=== PATIENT | female | born 1975 | race Caucasian/White ===

== ENCOUNTER 2022-01-10 06:59 | Outpatient (CLI) | payer MEDICARE, OTHER, SELFPAY ==
--- NOTE | 2022-01-10 08:48 | W.ANESCHARGE ---
Anesthesia Charges Start Date/Time Anesthesia Start Date: 01/10/22 Anesthesia Start Time: 08:05 Stop Date/Time Anesthesia Stop Date: 01/10/22 Anesthesia Stop Time: 08:43 Summary Emergency: No
== END 2022-01-10 07:00 | disposition home or self-care (01) ==
LOC: OP CLINIC 07:02
PROVIDERS: Visit Provider Internal Medicine Gastroenterology
DX: R10.13 Epigastric pain (principal); R19.7 Diarrhea, unspecified; K44.9 Diaphragmatic hernia without obstruction or gangrene; K31.89 Other diseases of stomach and duodenum; R19.8 Other specified symptoms and signs involving the digestive system and abdomen
CPT/HCPCS: 43239; 45380; 813; 88305; J2704

== ENCOUNTER 2022-01-11 09:21 | Emergency (ER) | payer MEDICARE, OTHER, SELFPAY ==
[2022-01-11 09:29] VITALS: BP 155/91; PULSE 68; RESP 18; TEMP 36.2; O2SAT 98; BMI 28.3
[2022-01-11 09:46] LABS: Appearance Urine Clear (Clear); Bilirubin Urine Negative (Negative); Blood Urine Negative (Negative); Color Urine Yellow (Yellow); Glucose Urine Negative (Negative); Ketones Urine Negative (Negative); Leukocyte Esterase Urine Negative (Negative); Nitrite Urine Negative (Negative); Protein Urine Negative (Negative); Urobilinogen Urine 0.2 (0.2-1.0)
--- NOTE | 2022-01-11 09:50 | CRLHL7_ITS ---
For Patients: As a result of the Century Cures Act, medical imaging exams and procedure reports are released immediately into your electronic medical record. You may view this report before your referring provider. If you have questions, please contact your health care provider. Indication : Abdominal pain Technique: Upright and supine views of the abdomen were acquired Comparison: No prior plain films Findings: The osseous structures as visualized appear normal. Bowel gas pattern is unremarkable without plain film evidence of ileus, obstruction or perforation. Pelvic calcifications are likely vascular. Impression: Unremarkable bowel gas pattern without plain film indication of ileus, obstruction or perforation. Dictated by Conner Elizalde MD @ 01/11/2022 10:50:29 AM (Electronically Signed)
[2022-01-11] MEDS: 0.9 % SODIUM CHLORIDE 1000 ml 1,000 ML IV (10:05)
[2022-01-11] MEDS: LORazepam 2 MG/ML inj 0.5 MG IVP (10:06)
[2022-01-11] MEDS: MORPHINE 4 MG/ML INJ IVP (10:11)
--- NOTE | 2022-01-11 10:13 | ED_ITS ---
HPI - Abdominal Pain General Time Seen by Provider: 10:13 Date Seen: 01/11/22 Chief Complaint: Abdominal Pain Stated Complaint: Abdominal pain Time Seen by Provider: 01/11/22 09:37 Source: patient Mode of arrival: ambulatory History of Present Illness HPI narrative: 46-year-old female presents here for evaluation of generalized abdominal pain. She described as gas going throughout her abdomen. She thinks it may be her gallbladder is noted to have some gallbladder issues that were recently diagnosed with a HIDA scan. She tells me her HIDA scan results shows me that her gallbladder does not work properly. She underwent endoscopy here both upper and lower yesterday with her GI physician . Upper and lower biopsies were done, but overall she tells me her report from him was that she has some slight inflammation. She reports that she had slight abdominal pain yesterday, but the medications they gave her the endoscopy really mask this. Today she noted when she woke up she had increased abdominal pain. She is not vomiting, she is not nauseous, and she is passing gas. She has not had a bowel movement but this is very normal after colonoscopy. She denies any dysuria frequency of urination. She has had a previous endometrial ablation but feels that she is unlikely to be . Denies any fevers chills or sweats she says the pain goes through to her back. And she notices more other upper quadrants than lower. Denies a cough, chest pain, but does have a history of reflux. She has been to multiple emergency room she tells me in the past for this abdominal pain. She was recently here in October and I actually saw her. I have reviewed that note and also a note I we have got from the [facility]. I also have a note from being seen over in [place] in August this last year. She tells me they usually get a CT scan but that is always been normal. MD elicited complaint: abdominal pain Related Data Home Medications Medication Instructions Recorded Confirmed albuterol sulfate 90 mcg/actuation INHALATION 01/11/22 aerosol inhaler atorvastatin 10 mg tablet mg 01/11/22 bupropion HCl 150 mg tablet,12 hr mg PO 01/11/22 sustained-release levothyroxine 112 mcg tablet mcg 01/11/22 levothyroxine 125 mcg tablet mcg 01/11/22 (Synthroid) meloxicam 15 mg tablet mg 01/11/22 omeprazole 40 mg capsule,delayed mg 01/11/22 release oxcarbazepine 150 mg tablet mg 01/11/22 pantoprazole 40 mg tablet,delayed mg PO 01/11/22 release phentermine 37.5 mg tablet mg 01/11/22 tizanidine 4 mg tablet mg 01/11/22 Allergies Allergy/AdvReac Type Severity Reaction Status Date / Time cephalexin Allergy Verified 01/11/22 09:37 Review of Systems Status of ROS Reports: 10 or more systems reviewed and unremarkable except as noted in History and below [facility] Medical History (Updated 01/11/22 @ 11:08 by Clifford Shabazz MD) GERD (gastroesophageal reflux disease) Hypothyroid Social History Smoking Status: Current every day smoker What tobacco products do you use: cigarettes Do you use any of these nicotine containing products: None Non-prescribed substance use: denies use service: No Exam Narrative: Exam Narrative: Patient is lying in the bed, constantly moving around, appears to be in some discomfort. But then will sit normally for me while I examine her. And she is a bit distractive. Pupils are equal round reactive to light there is no scleral icterus redness noted TMs normal oropharynx is normal. Neck is supple full range of motion. No lymphadenopathy anterior posterior chains or chest is good air entry bilaterally with no wheezing crackles noted heart sounds no clicks murmurs or gallops her abdomen slightly distended. No significant guarding no significant tenderness elicited she has a negative Smith sign, bowel sounds are normal in all quadrants. No peritoneal signs and no organomegaly. Her back reports that shows no evidence of any bruising or ecchymosis as does her abdominal skin. Extremities all move normally with normal power in upper lower extremities there is absence of edema normal pulses. And neurologically she is intact. Const: Vital Signs, click to edit/add: Vital Signs - 24 hr 01/11/22 09:29 01/11/22 11:17 Temperature 97.2 F L Pulse Rate 70 Pulse Rate [Right Pulse Oximeter] 68 Respiratory Rate 18 14 Blood Pressure 138/71 Blood Pressure [Ri ght Upper Arm] 155/91 H Pulse Oximetry 98 Documenting provider has reviewed patient's vital signs: yes Course Course Hospital Course: Patient improved here with the morphine and IV fluids. She did have a little bit of burning in her IV above the level of the insertion. Suspect this is a little bit from the histamine release of the morphine. Reevaluation(s) Reevaluation #1: Pain is basically gone, I reviewed with the patient her laboratory work which showed no evidence of elevated white count hemoglobin, lipase, urinalysis and preg test were all negative. Review of her abdominal x-ray showed some stool in the right side of the colon but there is no evidence of free air or other abnormality. Her ALT was slightly elevated, I am not sure the significance of this but this is nothing to be terribly worried about. I think at this point follow-up would be important. Back with her personal loan specialist, and I spoke in passing with Dr. Gamble the general surgeon who suggested follow-up appointment to discuss the biliary dyskinesia and a possible laparoscopic cholecystectomy. I reviewed with her the worsening signs and symptoms. Time: 11:08 Vital Signs Vital signs: Initial Vital Signs Temperature 97.2 F L 01/11/22 09:29 Temperature Source Temporal Artery Scan 01/11/22 09:29 Pulse Rate 68 01/11/22 09:29 Respiratory Rate 18 01/11/22 09:29 Blood Pressure 155/91 H 01/11/22 09:29 Blood Pressure Mean 112 01/11/22 09:29 Blood Pressure Position Sitting 01/11/22 09:29 Pulse Oximetry 98 01/11/22 09:29 Oxygen Delivery Method 01/11/22 09:29 Vital Signs Temperature 97.2 F L 01/11/22 09:29 Pulse Rate 68 01/11/22 09:29 Respiratory Rate 18 01/11/22 09:29 Blood Pressure 155/91 H 01/11/22 09:29 Pulse Oximetry 98 01/11/22 09:29 Temperature 97.2 F L 01/11/22 09:29 Pulse Rate 70 01/11/22 11:17 Respiratory Rate 14 01/11/22 11:17 Blood Pressure 138/71 01/11/22 11:17 Pulse Oximetry 98 01/11/22 09:29 MDM - Abdominal Pain MDM Narrative Medical decision making narrative: Patient is seen and assessed her vital signs are reviewed, explained to her we will start an IV will do some checking. I will get old charge from the [facility]. During the evaluation of this patient I considered multiple differential diagnosis including life-threatening differentials which are appendicitis, aortic aneurysm, mesenteric ischemia, bowel perforation, ectopic , volvulus and bowel obstruction, other differential diagnosis include but are not limited to inflammatory bowel disease, cholecystitis, pancreatitis, hepatitis, gastritis, GERD, diverticulitis, peptic ulcer disease, pyelonephritis/UTI, renal colic/stone, pelvic inflammatory disease, cervicitis, endometritis, intrauterine , dysfunctional uterine bleeding, ovarian cyst/torsion, spontaneous as well as other etiologies Lab Data Labs: Lab Results 01/11/22 01/11/22 01/11/22 Range/Units 09:39 10:00 10:12 WBC 9.29 (4.50-11.00) K/uL RBC 4.37 (4.00-5.20) m/uL Hgb 13.6 (12.0-16.0) gm/dL Hct 40.2 (33.0-51.0) % MCV 92 (80-100) fL MCH 31 (26-34) pg MCHC 34 (32-36) gm/dL RDW Coeff of Michael 13.0 (11.5-15.5) % Plt Count 272 (140-440) K/uL Neut % (Auto) 66.1 (42.0-72.0) % Lymph % (Auto) 24.3 (20-44) % [place] % (Auto) 6.4 (0.0-11.0) % Eos % (Auto) 3.0 (0.0-7.0) % Baso % (Auto) 0.1 (0.0-3.0) % Neut # (Auto) 6.14 (1.7-7.0) K/uL Lymph # (Auto) 2.26 (0.90-2.90) K/uL [place] # (Auto) 0.60 (0.00-0.90) K/UL Eos # (Auto) 0.28 (0.00-0.50) K/uL Baso # (Auto) 0.01 (0.00-0.30) K/uL Abs Immat Gran (auto) 0.01 (0.00-0.30) K/uL Sodium (135-149) mmol/L Potassium (3.6-5.1) mmol/L Chloride (96-114) mmol/L Carbon Dioxide (20-32) mmol/L BUN (5-24) mg/dL Creatinine (0.5-1.5) mg/dL Estimated Creat Clear Estimated GFR ml/min Glucose (60-115) mg/dL Calcium (8.4-10.6) mg/dL Total Bilirubin (0.1-1.5) mg/dL Direct Bilirubin (0.0-0.5) mg/dL AST (12-35) U/L ALT (4-35) U/L Alkaline Phosphatase (40-150) U/L C-Reactive Protein (0.5-1.0) mg/dL Total Protein (6.0-8.3) g/dL Albumin (3.3-5.0) g/dL Lipase (23-300) U/L HCG, Qual Negative (Negative) Urine Color Yellow (Yellow) Urine Appearance Clear (Clear) Urine pH 6.0 (5.0-8.5) Ur Specific [place] 1.010 (1.000-1.030) Urine Protein Negative (Negative) Urine Glucose (UA) Negative (Negative) Urine Ketones Negative (Negative) Urine Blood Negative (Negative) Urine Nitrite Negative (Negative) Urine Bilirubin Negative (Negative) Urine Urobilinogen 0.2 (0.2-1.0) Ur Leukocyte Esterase Negative (Negative) Urine RBC 0-2 (0-2) Urine WBC 0-2 (0-5) Ur Squamous Epith Cells Few (None-Few) Amorphous Sediment (None) Urine Bacteria None (None) 01/11/22 Range/Units 10:12 WBC (4.50-11.00) K/uL RBC (4.00-5.20) m/uL Hgb (12.0-16.0) gm/dL Hct (33.0-51.0) % MCV (80-100) fL MCH (26-34) pg MCHC (32-36) gm/dL RDW Coeff of Michael (11.5-15.5) % Plt Count (140-440) K/uL Neut % (Auto) (42.0-72.0) % Lymph % (Auto) (20-44) % [place] % (Auto) (0.0-11.0) % Eos % (Auto) (0.0-7.0) % Baso % (Auto) (0.0-3.0) % Neut # (Auto) (1.7-7.0) K/uL Lymph # (Auto) (0.90-2.90) K/uL [place] # (Auto) (0.00-0.90) K/UL Eos # (Auto) (0.00-0.50) K/uL Baso # (Auto) (0.00-0.30) K/uL Abs Immat Gran (auto) (0.00-0.30) K/uL Sodium 137 (135-149) mmol/L Potassium 4.0 (3.6-5.1) mmol/L Chloride 110 (96-114) mmol/L Carbon Dioxide 22 (20-32) mmol/L BUN 7 (5-24) mg/dL Creatinine 0.5 (0.5-1.5) mg/dL Estimated Creat Clear 123.99 Estimated GFR 119 ml/min Glucose 105 (60-115) mg/dL Calcium 9.8 (8.4-10.6) mg/dL Total Bilirubin 0.3 (0.1-1.5) mg/dL Direct Bilirubin 0.3 (0.0-0.5) mg/dL AST 33 (12-35) U/L ALT 67 H (4-35) U/L Alkaline Phosphatase 65 (40-150) U/L C-Reactive Protein < 0.5 L (0.5-1.0) mg/dL Total Protein 6.5 (6.0-8.3) g/dL Albumin 3.8 (3.3-5.0) g/dL Lipase 150 (23-300) U/L HCG, Qual (Negative) Urine Color (Yellow) Urine Appearance (Clear) Urine pH (5.0-8.5) Ur Specific [place] (1.000-1.030) Urine Protein (Negative) Urine Glucose (UA) (Negative) Urine Ketones (Negative) Urine Blood (Negative) Urine Nitrite (Negative) Urine Bilirubin (Negative) Urine Urobilinogen (0.2-1.0) Ur Leukocyte Esterase (Negative) Urine RBC (0-2) Urine WBC (0-5) Ur Squamous Epith Cells (None-Few) Amorphous Sediment (None) Urine Bacteria (None) Discharge Plan Discharge Clinical Impression: Dyskinesia of gallbladder Abdominal pain Qualifiers: Abdominal location: generalized Qualified Code(s): R10.84 - Generalized abdominal pain Patient Disposition: Home, Self-Care Condition: Improved Instructions: Abdominal Pain (ED), Biliary Dyskinesia (DC) Additional Instructions: All your labs look reasonable, there is no evidence of perforation, the white count CBC were all normal. Your liver function tests were basically also normal. At test for pancreas was negative. I wonder if this is your biliary dyskinesia, I did talk in passing with Dr. Gamble from General surgery, she suggested a follow-up appointment where they could talk about doing a laparoscopic cholecystectomy. Diet is also helpful, to avoid fatty foods, follow-up and discussion with your primary care personal loan specialist also. Return if worsening issues. Activity Level: Activity as Tolerated Discharge Diet: Low Fat/Low Cholesterol Prescriptions: No Action bupropion HCl 150 mg tablet sustained-release 12 hr PO 0RF Label Comments: TAKE 1 TABLET BY MOUTH 2 TIMES DAILY oxcarbazepine 150 mg tablet 0RF Label Comments: TAKE 2 TABLETS BY MOUTH TWICE A DAY atorvastatin 10 mg tablet 0RF Label Comments: TAKE ONE TABLET BY MOUTH DAILY tizanidine 4 mg tablet 0RF Label Comments: TAKE 1 TABLET (4 MG) BY MOUTH EVERY 6 HOURS IF NEEDED FOR MUSCLE SPASM. meloxicam 15 mg tablet 0RF Label Comments: TAKE ONE TABLET BY MOUTH DAILY phentermine 37.5 mg tablet 0RF Label Comments: TAKE 1 TABLET (37.5 MG) BY MOUTH ONCE DAILY BEFORE A MEAL. omeprazole 40 mg capsule,delayed release(DR/EC) 0RF Label Comments: TAKE 1 CAPSULE BY MOUTH EVERY DAY pantoprazole 40 mg tablet,delayed release (DR/EC) PO 0RF Label Comments: TAKE 1 TABLET (40 MG) BY MOUTH ONCE DAILY. TAKE 30-60 MINUTES BEFORE A MEAL/FOOD ONCE A DAY. levothyroxine [Synthroid] 125 mcg tablet 0RF Label Comments: TAKE 1 TABLET (125 MCG) BY ORAL ROUTE ONCE DAILY PLESE MAKE APPT albuterol sulfate 90 mcg/actuation HFA aerosol inhaler INHALATION 0RF Label Comments: INHALE 2 PUFFS BY MOUTH EVERY 4 HOURS IF NEEDED FOR SHORTNESS OF BREATH OR WHEEZING. levothyroxine 112 mcg tablet 0RF Label Comments: TAKE 1 TABLET (112 MCG) BY MOUTH ONCE DAILY. Follow Up/Referrals: Marlys Gamble MD [Staff Physician] - Gabriela De Leon MD [Staff Physician] - Jono Plascencia MD [Staff Physician] - Torri Blackman MD [Staff Physician] - Provider,Not a Local [Primary Care Provider] - Stand Alone Forms: MyHealth Info Instructions
--- NOTE | 2022-01-11 10:16 | PC.NURSE ---
pt got most of 4mg dose of Morphine, started c/o intense itching above iv site as it was infusing, is subsiding now
[2022-01-11 10:17] LABS: Basophils Absolute Auto 0.01 K/uL (0.00-0.30); Basophils Percent Auto 0.1 % (0.0-3.0); Eosinophils Absolute Auto 0.28 K/uL (0.00-0.50); Hematocrit 40.2 % (33.0-51.0); Hemoglobin* 13.6 gm/dL (12.0-16.0); Immature Granulocytes Abs Auto 0.01 K/uL (0.00-0.30); Lymphocytes Absolute Auto 2.26 K/uL (0.90-2.90); Lymphocytes Percent Auto 24.3 % (20-44); Mean Corpuscular HGB Conc 34 gm/dL (32-36); Mean Corpuscular Hemoglobin 31 pg (26-34); Mean Corpuscular Volume 92 fL (80-100); Monocytes Percent Auto 6.4 % (0.0-11.0); Neutrophils Absolute Auto 6.14 K/uL (1.7-7.0); Neutrophils Percent Auto 66.1 % (42.0-72.0); Platelet Count* 272 K/uL (140-440); Red Blood Count 4.37 m/uL (4.00-5.20); White Blood Count* 9.29 K/uL (4.50-11.00)
[2022-01-11 10:31] LABS: Albumin* 3.8 g/dL (3.3-5.0); Chloride* 110 mmol/L (96-114)
[2022-01-11 10:32] LABS: Sodium* 137 mmol/L (135-149)
[2022-01-11 10:34] LABS: Creatinine* 0.5 mg/dL (0.5-1.5); Est. Creatinine Clearance* 123.99; Estimated Glomerular Filt Rate 119 ml/min
[2022-01-11 10:35] LABS: HCG Qualitative* Negative (Negative)
[2022-01-11 10:35] LABS: Alanine Aminotransferase* 67 U/L (4-35); Alkaline Phosphatase* 65 U/L (40-150); Aspartate Amino Transferase* 33 U/L (12-35); Bilirubin Direct* 0.3 mg/dL (0.0-0.5); Bilirubin Total* 0.3 mg/dL (0.1-1.5); Blood Urea Nitrogen* 7 mg/dL (5-24); Calcium* 9.8 mg/dL (8.4-10.6); Carbon Dioxide* 22 mmol/L (20-32); Glucose* 105 mg/dL (60-115); Lipase* 150 U/L (23-300); Total Protein* 6.5 g/dL (6.0-8.3)
[2022-01-11 10:39] LABS: RBC Urine 0-2 (0-2); Squamous Epithelial Cell Urine Few (None-Few); WBC Urine 0-2 (0-5)
[2022-01-11 10:40] LABS: C Reactive Protein* < 0.5 mg/dL (0.5-1.0)
[2022-01-11 11:17] VITALS: BP 138/71; PULSE 70; RESP 14
[2022-01-11 11:57] LABS: Slide Review Reflex No
== END 2022-01-11 11:18 | disposition home or self-care (01) ==
LOC: ED 11:12
PROVIDERS: Emergency Provider Family Medicine
DX: K82.8 Other specified diseases of gallbladder (principal)
CPT/HCPCS: 36415; 74019; 80048; 80076; 81001; 83690; 84703; 85025; 86140; 96374; 96375; 99284; J2060; J2270; J7030

== ENCOUNTER 2022-01-16 20:51 | Outpatient (CLI) | payer MEDICARE, OTHER, SELFPAY | END 2022-01-16 20:52 | disposition home or self-care (01) | LOC: AMB 02-02 20:50 | PROVIDERS: Visit Provider Family Medicine | DX: R10.9 Unspecified abdominal pain (principal); R11.10 Vomiting, unspecified ==

== ENCOUNTER 2022-01-16 21:14 | Emergency (ER) | payer MEDICARE, OTHER, SELFPAY ==
[2022-01-16 21:20] VITALS: BP 146/83; PULSE 74; RESP 20; TEMP 36.3; O2SAT 99; BMI 28.3
[2022-01-16 21:30] VITALS: BP 134/82; PULSE 78; RESP 16; O2SAT 96
--- NOTE | 2022-01-16 21:45 | ED_ITS ---
HPI - General Adult General Chief complaint: Abdominal Pain Stated complaint: Abdominal Pain Time Seen by Provider: 01/16/22 21:32 Source: patient Mode of arrival: EMS Limitations: no limitations History of Present Illness HPI narrative: 46-year-old female coming in today with abdominal pain. Patient states she has been dealing with abdominal pain now for approximately 5 months. States that she has had normal CT scans and ultrasounds. States that she had an abnormal HIDA scan and she does have an appointment on Monday to see General surgery to have a discussion about biliary dyskinesia and to discuss having her gallbladder removed. She states that she had chicken sandwich for supper today and shortly after she got sharp right upper quadrant abdominal pain that took her breath away. Pain wraps into her back and shoots across the epigastrium- this is usually how her gallbladder pain presents. She vomited multiple times and called EMS. In the ambulance she received 100 mg of fentanyl and she is feeling much better. She is concerned that her pain is going to come back. She denies fevers or chills. No new symptoms, the pain a little bit worse than what she usually experiences however. Past medical history significant for GERD, muscle spasms in her back, hypothyroidism, hyperlipidemia. Related Data Home Medications Medication Instructions Recorded Confirmed albuterol sulfate 90 mcg/actuation INHALATION 01/11/22 aerosol inhaler atorvastatin 10 mg tablet mg 01/11/22 levothyroxine 112 mcg tablet mcg 01/11/22 levothyroxine 125 mcg tablet mcg 01/11/22 (Synthroid) meloxicam 15 mg tablet mg 01/11/22 omeprazole 40 mg capsule,delayed mg 01/11/22 release oxcarbazepine 150 mg tablet mg 01/11/22 pantoprazole 40 mg tablet,delayed mg PO 01/11/22 release phentermine 37.5 mg tablet mg 01/11/22 tizanidine 4 mg tablet mg 01/11/22 Allergies Allergy/AdvReac Type Severity Reaction Status Date / Time cephalexin Allergy Verified 01/16/22 21:23 Review of Systems Status of ROS: Reports: 10 or more systems reviewed and unremarkable except as noted in History and below [facility] Medical History GERD (gastroesophageal reflux disease) Hypothyroid Social History Smoking Status: Former smoker How often do you have a drink containing alcohol: never AUDIT-C Alcohol total score: 0 Non-prescribed substance use: denies use service: No Exam Narrative: Exam Narrative: Well-nourished well-developed patient in no acute distress. Alert and oriented. Answers questions appropriately. Mood and affect are appropriate. Thoughts are goal oriented and rational. No tangential or magical thinking noted. Patient speaks in full sentences without needing to catch their breath. HEENT: Normocephalic atraumatic. Pupils are equally round reactive to light. Extraocular muscles are intact. Conjunctivae are moist without any icterus noted. Moist mucous membranes. Posterior pharynx is normal. Neck is soft without any lymphadenopathy or thyromegaly. No masses are appreciated. Cardiovascular: Heart is regular rate and rhythm S1 and S2 are present without any murmurs. Lungs: Clear to auscultation bilaterally no wheezes rhonchi or rales are appreciated. Patient takes deep breaths without any discomfort. Abdomen: Soft and nondistended with normal bowel sounds. No guarding or rebound. No masses or organomegaly appreciated. She does have very mild right upper quadrant tenderness but a negative Smith's sign today. Extremities: Bilateral lower extremities are without edema. Normal DP and PT pulses. Skin: Well perfused without any obvious rashes. Const: Vital Signs, click to edit/add: Vital Signs - 24 hr 01/16/22 21:20 Temperature 97.4 F L Pulse Rate [Left P ulse Oximeter] 74 Respiratory Rate 20 Blood Pressure [Ri ght Upper Arm] 146/83 H Pulse Oximetry 99 Course Course Hospital Course: Patient had a IV placed in the ambulance had already sealed 500 mL of normal saline she, she received another 500 while she was here as well as Zoan. She had no more vomiting episodes in her pain was well controlled. Lab Work was repeated and compared to few days ago-her white cell count did come up a little bit but her CRP remain normal. A slight bump in LFTs as well, unclear significance of this. I did discuss the patient with Dr. Corona who recommended she follow up in the clinic on Monday instead of Monday as long as we got her pain controlled. About an hour after patient arrived her pain did return therefore she received 0.5 mg of IV Dilaudid. She fell asleep and was pain free. We discussed discharge planning with her and she felt comfortable going home and following up in the clinic. Vital Signs Vital signs: Initial Vital Signs Temperature 97.4 F L 01/16/22 21:20 Temperature Source Temporal Artery Scan 01/16/22 21:20 Pulse Rate 74 01/16/22 21:20 Respiratory Rate 20 01/16/22 21:20 Blood Pressure 146/83 H 01/16/22 21:20 Blood Pressure Mean 104 01/16/22 21:20 Blood Pressure Position Supine 01/16/22 21:20 Pulse Oximetry 99 01/16/22 21:20 Oxygen Delivery Method 01/16/22 21:20 Vital Signs Temperature 97.4 F L 01/16/22 21:20 Pulse Rate 74 01/16/22 21:20 Respiratory Rate 20 01/16/22 21:20 Blood Pressure 146/83 H 01/16/22 21:20 Pulse Oximetry 99 01/16/22 21:20 Temperature 97.4 F L 01/16/22 21:20 Pulse Rate 74 01/16/22 21:20 Respiratory Rate 01/16/22 21:20 Blood Pressure 146/83 H 01/16/22 21:20 Pulse Oximetry 99 01/16/22 21:20 Medical Decision Making MDM Narrative Medical decision making narrative: Recurrent abdominal pain of unclear ideology. Pain was controlled in the ED today. Patient will follow-up in the clinic on Monday which is tomorrow. She was agreeable with this plan and had no other questions. Medical Records Medical records reviewed: Yes I reviewed the patient's medical records Lab Data Lab results reviewed: Yes I reviewed the patient's lab results Labs: Lab Results 01/16/22 01/16/22 01/16/22 Range/Units 22:15 22:15 22:15 WBC 12.93 H (4.50-11.00) K/uL RBC 4.55 (4.00-5.20) m/uL Hgb 14.0 (12.0-16.0) gm/dL Hct 41.0 (33.0-51.0) % MCV 90 (80-100) fL MCH 31 (26-34) pg MCHC 34 (32-36) gm/dL RDW Coeff of Michael 13.1 (11.5-15.5) % Plt Count 278 (140-440) K/uL Neut % (Auto) 79.1 H (42.0-72.0) % Lymph % (Auto) 13.3 L (20-44) % [place] % (Auto) 6.0 (0.0-11.0) % Eos % (Auto) 1.3 (0.0-7.0) % Baso % (Auto) 0.2 (0.0-3.0) % Neut # (Auto) 10.20 H (1.7-7.0) K/uL Lymph # (Auto) 1.70 (0.90-2.90) K/uL [place] # (Auto) 0.80 (0.00-0.90) K/UL Eos # (Auto) 0.20 (0.00-0.50) K/uL Baso # (Auto) 0.00 (0.00-0.30) K/uL Abs Immat Gran (auto) 0.01 (0.00-0.30) K/uL ESR 4 (2-20) mm/hr Sodium 138 (135-149) mmol/L Potassium 3.5 L (3.6-5.1) mmol/L Chloride 107 (96-114) mmol/L Carbon Dioxide 27 (20-32) mmol/L BUN 12 (5-24) mg/dL Creatinine 0.7 (0.5-1.5) mg/dL Estimated Creat Clear 88.56 Estimated GFR 109 ml/min Glucose 110 (60-115) mg/dL Lactate (0.5-1.9) mmol/L Calcium 8.9 (8.4-10.6) mg/dL Total Bilirubin (0.1-1.5) mg/dL Direct Bilirubin (0.0-0.5) mg/dL AST (12-35) U/L ALT (4-35) U/L Alkaline Phosphatase (40-150) U/L C-Reactive Protein < 0.5 L (0.5-1.0) mg/dL Total Protein (6.0-8.3) g/dL Albumin (3.3-5.0) g/dL Lipase (23-300) U/L 01/16/22 01/16/22 Range/Units 22:15 22:15 WBC (4.50-11.00) K/uL RBC (4.00-5.20) m/uL Hgb (12.0-16.0) gm/dL Hct (33.0-51.0) % MCV (80-100) fL MCH (26-34) pg MCHC (32-36) gm/dL RDW Coeff of Michael (11.5-15.5) % Plt Count (140-440) K/uL Neut % (Auto) (42.0-72.0) % Lymph % (Auto) (20-44) % [place] % (Auto) (0.0-11.0) % Eos % (Auto) (0.0-7.0) % Baso % (Auto) (0.0-3.0) % Neut # (Auto) (1.7-7.0) K/uL Lymph # (Auto) (0.90-2.90) K/uL [place] # (Auto) (0.00-0.90) K/UL Eos # (Auto) (0.00-0.50) K/uL Baso # (Auto) (0.00-0.30) K/uL Abs Immat Gran (auto) (0.00-0.30) K/uL ESR (2-20) mm/hr Sodium (135-149) mmol/L Potassium (3.6-5.1) mmol/L Chloride (96-114) mmol/L Carbon Dioxide (20-32) mmol/L BUN (5-24) mg/dL Creatinine (0.5-1.5) mg/dL Estimated Creat Clear Estimated GFR ml/min Glucose (60-115) mg/dL Lactate 0.6 (0.5-1.9) mmol/L Calcium (8.4-10.6) mg/dL Total Bilirubin 0.4 (0.1-1.5) mg/dL Direct Bilirubin 0.4 (0.0-0.5) mg/dL AST 91 H (12-35) U/L ALT 92 H (4-35) U/L Alkaline Phosphatase 88 (40-150) U/L C-Reactive Protein (0.5-1.0) mg/dL Total Protein 7.3 (6.0-8.3) g/dL Albumin 4.1 (3.3-5.0) g/dL Lipase 126 (23-300) U/L Discharge Plan Discharge Clinical Impression: Abdominal pain Patient Disposition: Home, Self-Care Condition: Improved Additional Instructions: Will receive a call 1st thing in the morning from the surgery staff-you will have a follow-up appointment with the surgeon on Monday. Recommend not eating until follow-up appointment. Okay to drink plenty of water. Prescriptions: No Action oxcarbazepine 150 mg tablet 0RF Label Comments: TAKE 2 TABLETS BY MOUTH TWICE A DAY atorvastatin 10 mg tablet 0RF Label Comments: TAKE ONE TABLET BY MOUTH DAILY tizanidine 4 mg tablet 0RF Label Comments: TAKE 1 TABLET (4 MG) BY MOUTH EVERY 6 HOURS IF NEEDED FOR MUSCLE SPASM. meloxicam 15 mg tablet 0RF Label Comments: TAKE ONE TABLET BY MOUTH DAILY phentermine 37.5 mg tablet 0RF Label Comments: TAKE 1 TABLET (37.5 MG) BY MOUTH ONCE DAILY BEFORE A MEAL. omeprazole 40 mg capsule,delayed release(DR/EC) 0RF Label Comments: TAKE 1 CAPSULE BY MOUTH EVERY DAY pantoprazole 40 mg tablet,delayed release (DR/EC) PO 0RF Label Comments: TAKE 1 TABLET (40 MG) BY MOUTH ONCE DAILY. TAKE 30-60 MINUTES BEFORE A MEAL/FOOD ONCE A DAY. levothyroxine [Synthroid] 125 mcg tablet 0RF Label Comments: TAKE 1 TABLET (125 MCG) BY ORAL ROUTE ONCE DAILY PLESE MAKE APPT albuterol sulfate 90 mcg/actuation HFA aerosol inhaler INHALATION 0RF Label Comments: INHALE 2 PUFFS BY MOUTH EVERY 4 HOURS IF NEEDED FOR SHORTNESS OF BREATH OR WHEEZING. levothyroxine 112 mcg tablet 0RF Label Comments: TAKE 1 TABLET (112 MCG) BY MOUTH ONCE DAILY. Follow Up/Referrals: Provider,Not a Local [Primary Care Provider] - Stand Alone Forms: Siri Info Instructions
[2022-01-16 22:00] VITALS: BP 124/78; PULSE 71; RESP 18; O2SAT 99
[2022-01-16] MEDS: ONDANSETRON 2 MG/ML inj 4 MG IVP (22:14)
[2022-01-16 22:21] LABS: Lactate* 0.6 mmol/L (0.5-1.9)
[2022-01-16 22:23] LABS: Basophils Percent Auto 0.2 % (0.0-3.0); Eosinophils Percent Auto 1.3 % (0.0-7.0); Immature Granulocytes Abs Auto 0.01 K/uL (0.00-0.30); Lymphocytes Percent Auto 13.3 % (20-44); Mean Corpuscular HGB Conc 34 gm/dL (32-36); Mean Corpuscular Hemoglobin 31 pg (26-34); Mean Corpuscular Volume 90 fL (80-100); Neutrophils Percent Auto 79.1 % (42.0-72.0); Platelet Count* 278 K/uL (140-440); RDW Coefficient of Variation % 13.1 % (11.5-15.5); Red Blood Count 4.55 m/uL (4.00-5.20); White Blood Count* 12.93 K/uL (4.50-11.00)
[2022-01-16 22:25] LABS: Slide Review Reflex No
[2022-01-16 22:44] LABS: Albumin* 4.1 g/dL (3.3-5.0)
[2022-01-16 22:46] LABS: Bilirubin Direct* 0.4 mg/dL (0.0-0.5); Bilirubin Total* 0.4 mg/dL (0.1-1.5)
[2022-01-16 22:47] LABS: Alanine Aminotransferase* 92 U/L (4-35); Alkaline Phosphatase* 88 U/L (40-150); Aspartate Amino Transferase* 91 U/L (12-35); Lipase* 126 U/L (23-300); Total Protein* 7.3 g/dL (6.0-8.3)
[2022-01-16 22:49] LABS: Chloride* 107 mmol/L (96-114)
[2022-01-16 22:50] LABS: Potassium* 3.5 mmol/L (3.6-5.1); Sodium* 138 mmol/L (135-149)
[2022-01-16 22:52] LABS: Creatinine* 0.7 mg/dL (0.5-1.5); Est. Creatinine Clearance* 88.56; Estimated Glomerular Filt Rate 109 ml/min
[2022-01-16 22:53] LABS: Blood Urea Nitrogen* 12 mg/dL (5-24); Calcium* 8.9 mg/dL (8.4-10.6); Carbon Dioxide* 27 mmol/L (20-32); Glucose* 110 mg/dL (60-115)
[2022-01-16 22:55] VITALS: BP 115/63; PULSE 60; RESP 18; O2SAT 99
[2022-01-16] MEDS: 0.9 % SODIUM CHLORIDE 500 ML 500 ML IV (22:56)
[2022-01-16 23:00] VITALS: BP 118/69; PULSE 68; RESP 16; O2SAT 100
[2022-01-16 23:01] LABS: C Reactive Protein* < 0.5 mg/dL (0.5-1.0)
[2022-01-16 23:04] LABS: Erythrocyte SedimentationRate* 4 mm/hr (2-20)
[2022-01-16] MEDS: HYDROmorphone 0.5 mg/0.5 ml inj IVP (23:05)
[2022-01-17 09:20] VITALS: BP 162/90
[2022-01-17 10:00] VITALS: BP 139/84; PULSE 68; O2SAT 93
[2022-01-17 10:30] VITALS: BP 120/67; O2SAT 93
[2022-01-17 11:00] VITALS: BP 120/80; PULSE 52; O2SAT 97
[2022-01-17 11:30] VITALS: BP 140/76; PULSE 51; O2SAT 98
== END 2022-01-17 00:34 | disposition home or self-care (01) ==
PROVIDERS: Emergency Provider Family Medicine
DX: K81.0 Acute cholecystitis (principal)
CPT/HCPCS: 36415; 80048; 80076; 83605; 83690; 85025; 85651; 86140; 96374; 96375; 99284; 99285; J1100; J1170; J2250; J2405; J3010; J3490; J7120

== ENCOUNTER 2022-01-17 09:13 | Day surgery (SDC) | payer MEDICARE, OTHER, SELFPAY ==
[2022-01-17] VITALS (22 sets, daily range): BP systolic 126–162; BP diastolic 83–100; PULSE 52–86; RESP 12–20; TEMP 36.1–36.6; O2SAT 93–100; BMI 28.5
--- NOTE | 2022-01-17 09:44 | ED.ABDPAIN ---
HPI - Abdominal Pain General Time Seen by Provider: 09:44 Date Seen: 01/17/22 Chief Complaint: Abdominal Pain Stated Complaint: Gallbladder pain Time Seen by Provider: 01/17/22 09:21 Source: patient, RN notes reviewed and old records reviewed Mode of arrival: ambulatory Limitations: no limitations History of Present Illness HPI narrative: This 46-year-old female is coming in with severe abdominal pain and nausea vomiting. She was initially seen on 11/02/[address] Sanders for abdominal pain. I have reviewed his note. She was back in yesterday here to our ER with a flare of this abdominal pain with associated nausea vomiting. She is scheduled to see General surgery later today that appointment got moved up from Monday to today with her visit here in the ER yesterday. She states she has had a HIDA scan through [facility] that is abnormal. Since she went home from being in our ER yesterday, she states she has been up all night. Once the pain medicine completely wore off around 4-5 a.m., she has been up since then. She states she has ongoing nausea and vomiting, cannot keep anything in. Cannot even take any water. She does reside in [address] [facility] independent [address], does have a history of a TBI. Does not think she has had any fevers. Did have diarrhea yesterday but denies any change in the color of the stool. No hematochezia emesis are no melena or blood in stools. She describes the pain as severe. It is in upper abdomen but generalizes everywhere. MD elicited complaint: abdominal pain Onset (ago): day(s) Pain Consistency: constant (With this episode) Location: epigastric Severity: severe Related Data Hx Last Menstrual Period: Unknown, reportedly has had a tubal ligation, we will confirm negative hCG Home Medications Medication Instructions Recorded Confirmed albuterol sulfate 90 mcg/actuation INHALATION 01/11/22 aerosol inhaler atorvastatin 10 mg tablet mg 01/11/22 levothyroxine 112 mcg tablet mcg 01/11/22 levothyroxine 125 mcg tablet mcg 01/11/22 (Synthroid) meloxicam 15 mg tablet mg 01/11/22 omeprazole 40 mg capsule,delayed mg 01/11/22 release oxcarbazepine 150 mg tablet mg 01/11/22 pantoprazole 40 mg tablet,delayed mg PO 01/11/22 release phentermine 37.5 mg tablet mg 01/11/22 tizanidine 4 mg tablet mg 01/11/22 Allergies Allergy/AdvReac Type Severity Reaction Status Date / Time cephalexin Allergy Verified 01/16/22 21:23 Review of Systems Status of ROS Reports: 10 or more systems reviewed and unremarkable except as noted in History and below [facility] Medical History GERD (gastroesophageal reflux disease) Hypothyroid Social History Smoking Status: Former smoker How often do you have a drink containing alcohol: never AUDIT-C Alcohol total score: 0 Non-prescribed substance use: denies use service: No Exam Const: Vital Signs, click to edit/add: Vital Signs - 24 hr 01/17/22 09:21 Temperature 97.4 F L Pulse Rate [Left P ulse Oximeter] 60 Respiratory Rate 20 Blood Pressure [Le ft Upper Arm] 162/90 H Pulse Oximetry 100 Documenting provider has reviewed patient's vital signs: yes Common normals: average body habitus, oriented x3, no limitations, healthy appearing and alert General appearance: cooperative and in distress moderate Orientation/consciousness: Yes awake HENMT: Common normals: normocephalic, head/scalp atraumatic, hearing grossly normal bilaterally, external ears normal, external nose normal, nasal mucous membranes and turbinates normal, moist oral mucous membranes, oropharynx normal and dentition normal Head and scalp: normocephalic and atraumatic Nose: external nose normal and nasal mucous membranes and turbinates normal External ear: external ears normal Eye: Common normals: PERRL, EOMs intact bilaterally, conjunctivae normal and no scleral icterus Conjunctiva: conjunctiva(e) normal Pupil: PERRL Neck & C-Spine: Common normals: full ROM, no lymphadenopathy, supple, no meningeal signs, no JVD and thyroid normal Thyroid: thyroid normal Resp: Common normals: normal respiratory effort, no retractions, no use of accessory muscles and clear to auscultation bilaterally Auscultation: clear to auscultation bilaterally Cardio: Common normals: no JVD, regular rate, regular rhythm, S1 normal heart sound, S2 normal heart sound, no gallops, no clicks and no murmurs Rate: regular rate Rhythm: regular rhythm Heart sounds: S1 normal and S2 normal GI: Common normals: Normal to inspection, nondistended, normoactive bowel sounds present, soft to palpation and no hepatosplenomegaly Palpation: soft, tender (Throughout abdomen but is most consistently tender RUQ and epigastric area), guarding and no hepatosplenomegaly Rectal Exam - Female: deferred Extremity: Common normals: normal to inspection, full ROM, normal capillary refill, no joint enlargement, no clubbing, cyanosis or edema, no calf tenderness and no pedal edema Neuro: Common normals: oriented x3 Sensorium/orientation: awake and alert Meningeal signs: no meningeal signs Skin: Common normals: no rashes or lesions noted (Skin is tanned) General skin exam: no rashes or lesions noted (Skin is tanned) Course Course Hospital Course: We will stab lotion IV, get her on pulse oximetry, give her 4 mg IV Zofran for nausea control, start some IV fluids and initiate pain management with some fentanyl. We will recheck a full complement of labs, confirmed negative hCG. Going to withhold on any imaging at this time until I have seen labs. Will likely need to talk to General surgery. This point she is having abdominal pain and need to rule out intra-abdominal pathology, such things as pancreatitis. If she indeed has had abnormal HIDA scan this should certainly could be gallbladder related. Will consider other causes of surgical abdomen as well. Review of Dr. Sanders is prior note documents 2 prior C-sections, previous tubal ligation, previous ventral hernia repair with mesh, endometrial ablation, prior D and C and hysteroscopy, prior EGD. Reevaluation(s) Reevaluation #1: Have reviewed with the patient that her liver enzymes are further escalated in went over the levels. Reviewed that we need to really ultrasound the liver and gallbladder to assess the pathology. Presumably this is cholecystitis with transaminitis but need to better define the situation. Her pain is coming back. She understands that have been in contact with the surgeon and and working with them to delineate a course of action for her. Time: 11:46 Reevaluation #2: Dr. Gamble From general surgery is actually here to see the patient and will be taking her to the OR. Time: 12:11 Consultations Consultation #1: Have called Dr. Blackman and spoke with her on the phone regarding this case. Have reviewed the elevated transaminases and that the bilirubin is now mildly up. She would like me to proceed with getting an updated ultrasound of the right upper quadrant which I will do. Time: 11:18 Vital Signs Vital signs: Initial Vital Signs Temperature 97.4 F L 01/17/22 09:21 Temperature Source Temporal Artery Scan 01/17/22 09:21 Pulse Rate 60 01/17/22 09:21 Respiratory Rate 20 01/17/22 09:21 Blood Pressure 162/90 H 01/17/22 09:21 Blood Pressure Mean 114 01/17/22 09:21 Blood Pressure Position Supine 01/17/22 09:21 Pulse Oximetry 100 01/17/22 09:21 Oxygen Delivery Method 01/17/22 09:21 Vital Signs Temperature 97.4 F L 01/17/22 09:21 Pulse Rate 60 01/17/22 09:21 Respiratory Rate 20 01/17/22 09:21 Blood Pressure 162/90 H 01/17/22 09:21 Pulse Oximetry 100 01/17/22 09:21 Temperature 97.4 F L 01/17/22 09:21 Pulse Rate 60 01/17/22 09:21 Respiratory Rate 20 01/17/22 09:21 Blood Pressure 162/90 H 01/17/22 09:21 Pulse Oximetry 100 01/17/22 09:21 MDM - Abdominal Pain Lab Data Attestation: I reviewed the patient's lab results. Labs: Lab Results 01/17/22 01/17/22 01/17/22 Range/Units 10:04 10:04 10:04 WBC 11.13 H (4.50-11.00) K/uL RBC 4.68 (4.00-5.20) m/uL Hgb 14.5 (12.0-16.0) gm/dL Hct 42.1 (33.0-51.0) % MCV 90 (80-100) fL MCH 31 (26-34) pg MCHC 34 (32-36) gm/dL RDW Coeff of Michael 13.0 (11.5-15.5) % Plt Count 272 (140-440) K/uL Neut % (Auto) 79.2 H (42.0-72.0) % Lymph % (Auto) 13.4 L (20-44) % [place] % (Auto) 5.4 (0.0-11.0) % Eos % (Auto) 1.6 (0.0-7.0) % Baso % (Auto) 0.2 (0.0-3.0) % Neut # (Auto) 8.80 H (1.7-7.0) K/uL Lymph # (Auto) 1.50 (0.90-2.90) K/uL [place] # (Auto) 0.60 (0.00-0.90) K/UL Eos # (Auto) 0.20 (0.00-0.50) K/uL Baso # (Auto) 0.00 (0.00-0.30) K/uL Abs Immat Gran (auto) 0.02 (0.00-0.30) K/uL Sodium 137 (135-149) mmol/L Potassium 3.7 (3.6-5.1) mmol/L Chloride 109 (96-114) mmol/L Carbon Dioxide 25 (20-32) mmol/L BUN 6 (5-24) mg/dL Creatinine 0.6 (0.5-1.5) mg/dL Estimated Creat Clear 103.32 Estimated GFR 113 ml/min Glucose 112 (60-115) mg/dL Lactate 0.9 (0.5-1.9) mmol/L Calcium 8.8 (8.4-10.6) mg/dL Total Bilirubin 1.9 H (0.1-1.5) mg/dL AST 430 H (12-35) U/L ALT 326 H (4-35) U/L Alkaline Phosphatase 127 (40-150) U/L C-Reactive Protein < 0.5 L (0.5-1.0) mg/dL Total Protein 7.6 (6.0-8.3) g/dL Albumin 4.3 (3.3-5.0) g/dL Lipase 107 (23-300) U/L HCG, Qual (Negative) SARS-CoV-2 (PCR) (Negative) 01/17/22 01/17/22 Range/Units 10:04 10:04 WBC (4.50-11.00) K/uL RBC (4.00-5.20) m/uL Hgb (12.0-16.0) gm/dL Hct (33.0-51.0) % MCV (80-100) fL MCH (26-34) pg MCHC (32-36) gm/dL RDW Coeff of Michael (11.5-15.5) % Plt Count (140-440) K/uL Neut % (Auto) (42.0-72.0) % Lymph % (Auto) (20-44) % [place] % (Auto) (0.0-11.0) % Eos % (Auto) (0.0-7.0) % Baso % (Auto) (0.0-3.0) % Neut # (Auto) (1.7-7.0) K/uL Lymph # (Auto) (0.90-2.90) K/uL [place] # (Auto) (0.00-0.90) K/UL Eos # (Auto) (0.00-0.50) K/uL Baso # (Auto) (0.00-0.30) K/uL Abs Immat Gran (auto) (0.00-0.30) K/uL Sodium (135-149) mmol/L Potassium (3.6-5.1) mmol/L Chloride (96-114) mmol/L Carbon Dioxide (20-32) mmol/L BUN (5-24) mg/dL Creatinine (0.5-1.5) mg/dL Estimated Creat Clear Estimated GFR ml/min Glucose (60-115) mg/dL Lactate (0.5-1.9) mmol/L Calcium (8.4-10.6) mg/dL Total Bilirubin (0.1-1.5) mg/dL AST (12-35) U/L ALT (4-35) U/L Alkaline Phosphatase (40-150) U/L C-Reactive Protein (0.5-1.0) mg/dL Total Protein (6.0-8.3) g/dL Albumin (3.3-5.0) g/dL Lipase (23-300) U/L HCG, Qual Negative (Negative) SARS-CoV-2 (PCR) Negative SARS-CoV-2 (Negative) Imaging Data US - abdomen: Attestation: I have reviewed the pertinent imaging results. Radiologist's impression: Patient: TAY LUCERO Facility:?[facility] Patient ID:?[id number] Site Patient ID:?[id number]. Site :?[id number] Study:?US Abdomen/Pelvis -01/17/2022 12:10:01 PM Ordering Physician:Chester Simons Final Report: Indication: Abdominal pain and elevated liver function tests Technique: Sonography of the abdomen was performed limited to the structures discussed below Comparison: Limited portions of a CT from November 02 08/15/2021 Findings: The liver is normal in size. Hepatic cysts are noted which were present on the prior CT. No visible solid mass. No intrahepatic biliary ductal dilatation or perihepatic fluid collections. The pancreas as visualized appear normal. Portions were obscured by bowel gas. The right kidney is normal in size and appearance measuring 9.2 x 5.2 x 4.1 centimeters. The proximal aorta measures 2 centimeters which is normal Gallbladder wall thickness is normal at 2 millimeters. No pericholecystic fluid. There was a positive Smith`s sign elicited. Multiple small stones are identified layering throughout the gallbladder. The common duct measures 9 millimeters which is abnormally enlarged for a patient of this age. In addition, it measured closer to 6 or 7 millimeters on the prior CT. This raises the possibility of a distal duct stone not directly visible on this exam. Impression: 1. There is cholelithiasis but there is no evidence of acute cholecystitis. No wall thickening or pericholecystic fluid. However, there is a sonographic Smith`s sign and the common duct is mildly dilated. This raises the possibility of distal choledocholithiasis not directly visible on the exam 2. Incidental hepatic cysts Discharge Plan Discharge Clinical Impression: Acute cholecystitis, Abdominal pain, Cholelithiasis, Nausea & vomiting Patient Disposition: Admitted As Inpatient Condition: Unchanged
[2022-01-17] MEDS: 0.9 % SODIUM CHLORIDE 1000 ml 1,000 ML 500 ML IV (10:09)
[2022-01-17] MEDS: ONDANSETRON 2 MG/ML inj 4 MG IVP ×2 (10:15→12:42)
[2022-01-17] MEDS: fentaNYL 100 MCG/2 ML inj 50 MCG IVP ×3 (10:19→15:40)
[2022-01-17 10:20] LABS: Basophils Percent Auto 0.2 % (0.0-3.0); Eosinophils Percent Auto 1.6 % (0.0-7.0); Hematocrit 42.1 % (33.0-51.0); Hemoglobin* 14.5 gm/dL (12.0-16.0); Immature Granulocytes Abs Auto 0.02 K/uL (0.00-0.30); Lymphocytes Percent Auto 13.4 % (20-44); Mean Corpuscular HGB Conc 34 gm/dL (32-36); Mean Corpuscular Hemoglobin 31 pg (26-34); Mean Corpuscular Volume 90 fL (80-100); Monocytes Percent Auto 5.4 % (0.0-11.0); Neutrophils Percent Auto 79.2 % (42.0-72.0); Platelet Count* 272 K/uL (140-440); Red Blood Count 4.68 m/uL (4.00-5.20); White Blood Count* 11.13 K/uL (4.50-11.00)
[2022-01-17 10:24] LABS: Lactate* 0.9 mmol/L (0.5-1.9)
[2022-01-17 10:26] LABS: Slide Review Reflex No
[2022-01-17 10:40] LABS: Albumin* 4.3 g/dL (3.3-5.0); Chloride* 109 mmol/L (96-114); Sodium* 137 mmol/L (135-149)
[2022-01-17 10:41] LABS: Potassium* 3.7 mmol/L (3.6-5.1)
[2022-01-17 10:42] LABS: HCG Qualitative Serum* Negative (Negative)
[2022-01-17 10:43] LABS: Alkaline Phosphatase* 127 U/L (40-150); Aspartate Amino Transferase* 430 U/L (12-35); Bilirubin Total* 1.9 mg/dL (0.1-1.5); Blood Urea Nitrogen* 6 mg/dL (5-24); Carbon Dioxide* 25 mmol/L (20-32); Creatinine* 0.6 mg/dL (0.5-1.5); Est. Creatinine Clearance* 103.32; Estimated Glomerular Filt Rate 113 ml/min; Total Protein* 7.6 g/dL (6.0-8.3)
[2022-01-17 10:44] LABS: Alanine Aminotransferase* 326 U/L (4-35); Calcium* 8.8 mg/dL (8.4-10.6); Glucose* 112 mg/dL (60-115); Lipase* 107 U/L (23-300)
[2022-01-17 10:50] LABS: C Reactive Protein* < 0.5 mg/dL (0.5-1.0)
--- NOTE | 2022-01-17 11:19 | CRLHL7_ITS ---
For Patients: As a result of the Century Cures Act, medical imaging exams and procedure reports are released immediately into your electronic medical record. You may view this report before your referring provider. If you have questions, please contact your health care provider. Indication: Abdominal pain and elevated liver function tests Technique: Sonography of the abdomen was performed limited to the structures discussed below Comparison: Limited portions of a CT from November 02 08/15/2021 Findings: The liver is normal in size. Hepatic cysts are noted which were present on the prior CT. No visible solid mass. No intrahepatic biliary ductal dilatation or perihepatic fluid collections. The pancreas as visualized appear normal. Portions were obscured by bowel gas. The right kidney is normal in size and appearance measuring 9.2 x 5.2 x 4.1 centimeters. The proximal aorta measures 2 centimeters which is normal Gallbladder wall thickness is normal at 2 millimeters. No pericholecystic fluid. There was a positive Smith`s sign elicited. Multiple small stones are identified layering throughout the gallbladder. The common duct measures 9 millimeters which is abnormally enlarged for a patient of this age. In addition, it measured closer to 6 or 7 millimeters on the prior CT. This raises the possibility of a distal duct stone not directly visible on this exam. Impression: 1. There is cholelithiasis but there is no evidence of acute cholecystitis. No wall thickening or pericholecystic fluid. However, there is a sonographic Smith`s sign and the common duct is mildly dilated. This raises the possibility of distal choledocholithiasis not directly visible on the exam 2. Incidental hepatic cysts Dictated by Conner Elizalde MD @ 01/17/2022 12:32:15 PM (Electronically Signed)
[2022-01-17 11:28] LABS: SARS PCR* Negative SARS-CoV-2 (Negative)
--- NOTE | 2022-01-17 12:20 | PM.GSCN ---
History of Present Illness Consult details Consult date: 01/17/22 Narrative: Patient is a 46-year-old female, who presented to the emergency department for persistent right upper quadrant abdominal pain. She does have a history of intermittent right upper quadrant abdominal pain, for months that would come and go, but she has never had pain persist like this. Her workup previously has included CT scans and abdominal ultrasounds, all of which were within normal limits. HIDA scan was performed last month, which did show an abnormal ejection fraction of 24%. This most recent episode started out of the blue yesterday evening. It has been associated nausea and vomiting. The pain is focused in her right upper quadrant with some radiation around the side. Denies any fevers or chills. Her abdominal surgical history is positive for C-sections, umbilical hernia repair and ventral hernia repair. Review of Systems Status of ROS: Reports: 6 or more systems reviewed and unremarkable except as noted in History and below [facility] Medical History GERD (gastroesophageal reflux disease) Hypothyroid Social History Smoking Status: Former smoker How often do you have a drink containing alcohol: never AUDIT-C Alcohol total score: 0 Non-prescribed substance use: denies use service: No Meds Home Medications and Allergies Home Medications Medication Instructions Recorded Confirmed Type albuterol sulfate 90 mcg/actuation INHALATION 01/11/22 History aerosol inhaler atorvastatin 10 mg tablet mg 01/11/22 History levothyroxine 112 mcg tablet mcg 01/11/22 History levothyroxine 125 mcg tablet mcg 01/11/22 History (Synthroid) meloxicam 15 mg tablet mg 01/11/22 History omeprazole 40 mg capsule,delayed mg 01/11/22 History release oxcarbazepine 150 mg tablet mg 01/11/22 History pantoprazole 40 mg tablet,delayed mg PO 01/11/22 History release phentermine 37.5 mg tablet mg 01/11/22 History tizanidine 4 mg tablet mg 01/11/22 History Allergies Allergy/AdvReac Type Severity Reaction Status Date / Time cephalexin Allergy Verified 01/16/22 21:23 Exam Narrative: Exam Narrative: General: Alert and oriented, lying in bed in moderate distress. Nontoxic Respiratory: Equal breath rise bilaterally, maintained on room air. Clear breath sounds bilaterally. CV: Regular rhythm and rate, well perfused Abdomen: Soft, nondistended, tender to palpation right upper quadrant with positive Smith sign. Some guarding during exam, no rebound. Const: Vital Signs, click to edit/add: Vital Signs - 24 hr 01/17/22 09:21 Temperature 97.4 F L Pulse Rate [Left P ulse Oximeter] 60 Respiratory Rate 20 Blood Pressure [Le ft Upper Arm] 162/90 H Pulse Oximetry 100 Results Labs Labs: Abnormal lab results 01/17/22 01/17/22 Range/Units 10:04 10:04 WBC 11.13 H (4.50-11.00) K/uL Neut % (Auto) 79.2 H (42.0-72.0) % Lymph % (Auto) 13.4 L (20-44) % Neut # (Auto) 8.80 H (1.7-7.0) K/uL Total Bilirubin 1.9 H (0.1-1.5) mg/dL AST 430 H (12-35) U/L ALT 326 H (4-35) U/L C-Reactive Protein < 0.5 L (0.5-1.0) mg/dL Diabetes panel 01/17/22 Range/Units 10:04 Sodium 137 (135-149) mmol/L Potassium 3.7 (3.6-5.1) mmol/L Chloride 109 (96-114) mmol/L Carbon Dioxide 25 (20-32) mmol/L BUN 6 (5-24) mg/dL Creatinine 0.6 (0.5-1.5) mg/dL Glucose 112 (60-115) mg/dL Calcium 8.8 (8.4-10.6) mg/dL AST 430 H (12-35) U/L ALT 326 H (4-35) U/L Alkaline Phosphatase 127 (40-150) U/L Total Protein 7.6 (6.0-8.3) g/dL Albumin 4.3 (3.3-5.0) g/dL Calcium panel 01/17/22 Range/Units 10:04 Calcium 8.8 (8.4-10.6) mg/dL Albumin 4.3 (3.3-5.0) g/dL Pituitary panel 01/17/22 Range/Units 10:04 Sodium 137 (135-149) mmol/L Potassium 3.7 (3.6-5.1) mmol/L Chloride 109 (96-114) mmol/L Carbon Dioxide 25 (20-32) mmol/L BUN 6 (5-24) mg/dL Creatinine 0.6 (0.5-1.5) mg/dL Glucose 112 (60-115) mg/dL Calcium 8.8 (8.4-10.6) mg/dL Adrenal panel 01/17/22 Range/Units 10:04 Sodium 137 (135-149) mmol/L Potassium 3.7 (3.6-5.1) mmol/L Chloride 109 (96-114) mmol/L Carbon Dioxide 25 (20-32) mmol/L BUN 6 (5-24) mg/dL Creatinine 0.6 (0.5-1.5) mg/dL Glucose 112 (60-115) mg/dL Calcium 8.8 (8.4-10.6) mg/dL Total Bilirubin 1.9 H (0.1-1.5) mg/dL AST 430 H (12-35) U/L ALT 326 H (4-35) U/L Alkaline Phosphatase 127 (40-150) U/L Total Protein 7.6 (6.0-8.3) g/dL Albumin 4.3 (3.3-5.0) g/dL All other labs normal. Imaging Abdominal ultrasound report/results: report reviewed and image reviewed Assessment and Plan Assessment and plan (1) Acute cholecystitis: Status: Acute Plan Patient is a 46-year-old female who presented to the emergency department with findings consistent for acute cholecystitis. Given her elevated LFTs and dilated common bile duct on abdominal ultrasound (9 mm) I am concerned about the possibility of choledocholithiasis. I had a detailed conversation with the patient regarding the diagnosis of acute cholecystitis and choledocholithiasis We discussed the recommendation for laparoscopic cholecystectomy with intraoperative cholangiograms and possible choledochal scope common bile duct exploration We discussed the risks of surgery (including but not limited to) the risks of bleeding, infection, injury to other structures in the abdomen including bile duct injury, bile leak and conversion to an open operation. We discussed the possibility that the patient's pain not improve with surgery. We discussed the possibility of permanent post-operative diarrhea that may require medical management. Additionally, the conceivably of complications requiring additional surgery or further hospitalization were also discussed including the risks of TN, respiratory failure, stroke and blood clots. The patient voiced an understanding of our conversation, had the opportunity to ask questions, agreed to accept the risks of surgery and asked that we proceed with surgery. -will give preoperative antibiotics -patient to go to the OR for laparoscopic cholecystectomy with intraoperative cholangiogram, possible common bile duct exploration
--- NOTE | 2022-01-17 12:41 | XR_ITS ---
Final Report Patient: TAY LUCERO Facility:?[facility] Patient ID:?[id number] Site [id number] ID:?[id number]. Site :?[id number] Study:?XRay Abdomen INTRA OP LAP DARCY-01/17/2022 3:02:07 PM Ordering Physician:?Tye Frankel Final Report: INDICATION: Post cholecystectomy intraoperative cholangiogram. TECHNIQUE: Intraoperative C-arm fluoroscopy. IMPRESSION: Intraoperative cholangiogram was obtained. Questionable filling defect at the ampulla. No other filling defect. There is some contrast extending beyond the ampulla into the duodenum. No sign of contrast extravasation to suggest biliary leak. Fluoroscopy time 2 minutes and 20 seconds. One images were captured. Dictated by Pablo Bolivar MD @ 01/17/2022 3:06:16 PM (Electronic Signature)
[2022-01-17] MEDS: ERTAPENEM 1 GM inj IVP (13:07)
[2022-01-17] MEDS: LACTATED RINGERS 1000 ML 1,000 ML 35 ML IV ×2 (13:07→20:01)
[2022-01-17] MEDS: BUPIVACAINE 0.5% 30 ML INJECTION (13:38)
[2022-01-17] MEDS: SODIUM CHLORIDE 0.9 % (FLUSH) 10 ML SYRINGE IVF ×2 (13:49→18:52)
[2022-01-17] MEDS: IOPAMIDOL 50 ML VIAL INJECTION ×2 (13:50→14:09)
--- NOTE | 2022-01-17 15:11 | PM.GSPRC ---
Operative Note Date of procedure: 01/17/22 Type of Procedure: 1. Laparoscopic cholecystectomy 2. Intraoperative cholangiogram Procedure Description: After discussing the risks and benefits of the procedure, the patient signed informed consent.? The operative site was marked and the patient was brought to the operating room and placed on the operating table in supine position.? Care was taken to pad the patient's pressure points.?? The patient was then intubated by anesthesia.?? The operative site was then prepped and draped in the usual sterile fashion.? A time-out was then performed. Entrance to the abdomen was gained via a 5 mm Visiport in the left upper quadrant. The abdomen was insufflated and briefly surveyed for signs of injury. There was none. 11 mm umbilical port was placed as well as 2 working ports along the right costal margin. Patient was then placed in reverse Trendelenburg position with the right side up. The gallbladder was distended and unable to be grasped. A laparoscopic needle was inserted into the field and bile drained from the gallbladder. This allowed the fundus to be grasped and retracted cephalad. A small amount of dissection was needed to free omental adhesions from the gallbladder. The infundibulum was grasped. A combination of hook cautery and blunt dissection was used to carefully dissect out the cystic duct and artery until they could clearly be seen entering the gallbladder without any intervening structures. The cystic artery was clipped with 2 clips proximally 1 clip distally and transected with the scissors. A single clip was placed distal on the cystic duct. The cystic duct was then partially transected with the laparoscopic scissors. A cholangiogram there was placed within the cystic duct and C-arm brought onto the field. Fluoroscopy was performed with evidence of multiple stones in the cystic duct and obstruction at the ampulla the common bile duct. The cystic duct was milked with removal of 2 stones. 1 g of glucagon was given to the patient, but there remained persistent blockage at the ampulla of the common bile duct. The catheter was removed and the wire for the choledochal scope brought onto the field. Several attempts were made to try to pass the wire under fluoroscopy. The wire continued to not be able to be advanced through the cystic duct into the common bile duct. The decision was made at that time to abort this portion of the procedure. A clip was then placed proximal on the cystic duct and the duct was completely transected. An endoloop of 0 PDS suture was used to ensure complete ligation of the cystic duct. The gallbladder was then taken off of the liver bed. And removed from the abdomen using an Endo-Catch bag. The gallbladder bed was surveyed for hemostasis. A small amount of bile which had spilled was suctioned from the abdomen the ports were then removed under direct vision. The umbilical port fascia was closed with 0 Vicryl. The skin was closed with absorbable subcuticular suture. Instrument sponge and needle counts were correct at the end of the case. The patient was then woken and transferred to the PACU in stable condition. ? Sterile dressings were then applied. ? The patient was then woken and transported to the recovery area in stable condition. ? The patient tolerated the procedure well. Findings: Cholecystitis with associated choledocholithiasis. Unable to clear all of the stones from the common bile duct. Anesthesia: KELVIN Surgeon: Marlys Gamble MD Estimated blood loss (mL): 10 Condition: stable Disposition: PACU
--- NOTE | 2022-01-17 15:12 | W.ANESCHARGE ---
Anesthesia Charges Start Date/Time Anesthesia Start Date: 01/17/22 Anesthesia Start Time: 12:58 Stop Date/Time Anesthesia Stop Date: 01/17/22 Anesthesia Stop Time: 15:08 Summary Emergency: Yes
--- NOTE | 2022-01-17 15:16 | W.ANESCHARGE ---
Anesthesia Charges Start Date/Time Anesthesia Start Date: 01/17/22 Anesthesia Start Time: 12:58 Stop Date/Time Anesthesia Stop Date: 01/17/22 Anesthesia Stop Time: 15:08 Summary Emergency: Yes
--- NOTE | 2022-01-17 16:23 | SUR.PHASEI ---
PATIENT MET PACU DISCHARGE CRITERIA. TRANSFERRED TO [facility]
[2022-01-17] MEDS: HYDROmorphone 0.5 mg/0.5 ml inj IVP (17:26)
--- NOTE | 2022-01-17 17:26 | PC.NURSE ---
Addendum entered by Mayelin Patel RN 01/17/22 19:33: Added: Pt. received dilaudid and toradol IV for pain control. Tolerated well. Continues to be NPO. Original Note: Pt. arrived from PACU to room 256. Very sleepy. BP hypertensive 150s/80s. Afebrile, denies pain. Noted mild nausea, that passed. Waiting on orders for pt. NPO as plan is for pt. to transfer to [facility]. Pt. has been on room air, O2 sats in upper 90s. RR 14-16/min. Pt. gave verbal yes for staff to contact neighbor, Jono, ([phone]) to update her as surgeon unable to contact pt's mother. Charge nurse currently giving p/c report to Jono. Phone call report to NINFA Frankel @ [place] ([phone]). Pt. will be transferring to room #7213. Updated charge nurse so that EMS transport can be contacted.
[2022-01-17] MEDS: KETOROLAC 15 MG/ML inj IVP (18:52)
--- NOTE | 2022-01-17 20:09 | PC.NURSE ---
Pt Vitally Stable. Pain Controlled. No N/v. Up to Bathroom SBA and voided. Pt exited via EMS @ 2004.
--- NOTE | 2022-01-27 16:42 | PM.DS1 ---
DS: Providers Provider Date Seen: 01/17/22 Primary care physician: Not a Local Provider Attending Physician on discharge: Marlys Gamble MD DS: Summary Hospital Course Hospital Course: Patient presented to the emergency department with workup consistent with acute cholecystitis. She also had elevated LFTs and dilated common bile duct, concerning for possible choledocholithiasis. She underwent a laparoscopic cholecystectomy with intraoperative cholangiogram. Unfortunately a stone in the common bile duct was seen and was unable to pass. Gastroenterology was consulted with recommendations for an ERCP. Patient was accepted for transfer to [facility]. Patient tolerated procedure well without immediate complication. She was stable postoperatively and appropriate for ground transport. Time Spent with Patient Time attestation: Total time spent providing and/or coordinating discharge services: Exam Narrative: Exam Narrative: General: Alert and oriented, no acute distress. Abdomen: soft, appropriately tender over incision sites. Dermabond in place. Discharge Plan Discharge Disposition: [facility] Discharging Surgeon: Marlys Gamble Follow-Up Appointment: None Prescriptions: No Action oxcarbazepine 150 mg tablet Label Comments: TAKE 2 TABLETS BY MOUTH TWICE A DAY atorvastatin 10 mg tablet Label Comments: TAKE ONE TABLET BY MOUTH DAILY tizanidine 4 mg tablet Label Comments: TAKE 1 TABLET (4 MG) BY MOUTH EVERY 6 HOURS IF NEEDED FOR MUSCLE SPASM. meloxicam 15 mg tablet Label Comments: TAKE ONE TABLET BY MOUTH DAILY phentermine 37.5 mg tablet Label Comments: TAKE 1 TABLET (37.5 MG) BY MOUTH ONCE DAILY BEFORE A MEAL. omeprazole 40 mg capsule,delayed release(DR/EC) Label Comments: TAKE 1 CAPSULE BY MOUTH EVERY DAY pantoprazole 40 mg tablet,delayed release (DR/EC) PO Label Comments: TAKE 1 TABLET (40 MG) BY MOUTH ONCE DAILY. TAKE 30-60 MINUTES BEFORE A MEAL/FOOD ONCE A DAY. levothyroxine [Synthroid] 125 mcg tablet Label Comments: TAKE 1 TABLET (125 MCG) BY ORAL ROUTE ONCE DAILY PLESE MAKE APPT albuterol sulfate 90 mcg/actuation HFA aerosol inhaler INHALATION Label Comments: INHALE 2 PUFFS BY MOUTH EVERY 4 HOURS IF NEEDED FOR SHORTNESS OF BREATH OR WHEEZING. levothyroxine 112 mcg tablet Label Comments: TAKE 1 TABLET (112 MCG) BY MOUTH ONCE DAILY. Forms: Work/Release Restrictions Follow-up: Provider,Not a Local [Primary Care Provider] - Discharge Orders: Discharge Order (Routine); Ordered 01/17/22 Ordered By: Marlys Gamble
== END 2022-01-17 20:05 | disposition short-term general hospital (02) ==
LOC: ED 12:55 → SS 13:08 → MEDSURG 16:13
PROVIDERS: Emergency Provider Family Medicine; Visit Provider Surgery
PROC: 0FT44ZZ Resection of Gallbladder, Percutaneous Endoscopic Approach (ICD-10-PCS; CPT 47563; principal; 2022-01-17 12:30)
DX: K80.47 Calculus of bile duct with acute and chronic cholecystitis with obstruction (principal); K21.9 Gastro-esophageal reflux disease without esophagitis; E03.9 Hypothyroidism, unspecified
CPT/HCPCS: 47563; 00790; 36415; 74300; 76000; 76705; 80053; 80076; 83605; 83690; 84703; 85025; 86140; 87635; 88304; 99140; 99284; 99285; C1769; J1170; J1335; J1885; J2405; J3010; J3490; J7030; J7120